=== PATIENT | male | born 1985 | race Caucasian/White ===

== ENCOUNTER 2017-02-28 22:07 | Emergency (ER) | payer SELFPAY ==
[~2017-02-28] VITALS: Ht 177.8 cm; Wt 77.1 kg
[2017-02-28 22:35] LABS: BILIRUBIN,URINE NEGATIVE (NEGATIVE); KETONES,URINE NEGATIVE (NEGATIVE); LEUKOCYTE ESTERASE ,URINE 3+ (NEGATIVE); NITRITE,URINE NEGATIVE (NEGATIVE); PH,URINE 6 (5-9); PROTEIN,URINE 2+ (NEGATIVE); UROBILINOGEN,URINE NORMAL (NORMAL)
[2017-02-28 22:47] LABS: WBC,URINE TNTC /HPF
[2017-02-28] MEDS ORDERED: AZITHROMYCIN 250 MG TAB (ZITHROMAX) PO STA (23:28)
[2017-02-28] MEDS ORDERED: cefTRIAXone 250 MG (ROCEPHIN) VIAL IM ONE (23:30)
[2017-02-28] MEDS ORDERED: LIDOCAINE 1% INJ 20 ML (XYLOCAINE) VIAL INJ ONE (23:30)
--- NOTE | 2017-02-28 23:35 | ED GU-Male ---
General Chief Complaint: -Male Stated Complaint: BLOOD IN URINE Nursing Triage Note: PT TO ED 3 W/ C/O TESTICULAR PAIN ET HEMATURIA ONSET YESTERDAY. DENIES INJURY Source: patient Exam Limitations: no limitations History of Present Illness Time seen by provider: 23:20 Initial Comments Here with report of burning with urination that's been going on actually for a couple weeks. Got better and then worse yesterday. Was checked for sexual transmitted diseases about a month ago and was clear. He has the same partner but apparently partner did have the disease. He has not been treated for Chlamydia as of yet. He is concerned about that. Timing/Duration: getting worse Severity/Quality: mild, moderate Location: suprapubic, urethral Radiation: none Activities at Onset: none Sexual [place] History: less than 2 months ago, single partner Associated Symptoms: dysuria, No fever/chills, No nausea/vomiting, urinary frequency Allergies and Home Medications Allergies Coded Allergies: No Known Drug Allergies (Unverified , 02/28/17) Constitutional: see HPI, No chills, No fever Respiratory: no symptoms reported Cardiovascular: no symptoms reported Gastrointestinal: no symptoms reported Genitourinary: see HPI, burning, dysuria, pain Musculoskeletal: no symptoms reported Past [id number]-[id number] Hx Patient Social History Alcohol Use: Denies Use Recreational Drug Use: No Smoking Status: Current Everyday Smoker Type Used: Cigarettes 2nd Hand Smoke Exposure: Yes Recent Foreign Travel: No Contact w/Someone Who Travel: No Recent Infectious Disease Expo: No Recent Hopitalizations: No Physical Abuse: No Sexual Abuse: No Mistreated: No Fear: No Surgeries History of Surgeries: No Respiratory History of Respiratory Disorde: No Cardiovascular History of Cardiac Disorders: No Neurological History of Neurological Disord: No Genitourinary History of Genitourinary Disor: No Gastrointestinal History of Gastrointestinal Di: No Musculoskeletal History of Musculoskeletal Dis: No Endocrine History of Endocrine Disorders: No HEENT History of HEENT Disorders: No Cancer History of Cancer: No Psychosocial History of Psychiatric Problem: No Suicide Risk Score: 0 Integumentary History of Skin or Integumenta: No Reviewed Nursing Assessment Reviewed/Agree w Nursing PMH: Yes Family Medical History Significant Family History: No Pertinent Family Hx Physical Exam Vital Signs Vital Sign - Last 12Hours 02/28/17 22:14 Temp 98.6 Pulse 103 Resp 16 B/P (MAP) 149/83 (105) Pulse Ox 99 O2 Delivery Room Air Capillary Refill : Less Than 3 Seconds General Appearance: WD/WN, no apparent distress Cardiovascular: regular rate, rhythm, no murmur Respiratory: lungs clear, normal breath sounds Gastrointestinal: non tender, soft Back: normal inspection, no CVA tenderness, no vertebral tenderness Neurologic/Psychiatric: alert, oriented x 3 Skin: normal color, warm/dry Progress/Results/Core Measures Suspected Sepsis Recent Fever Within 48 Hours: No Infection Criteria Present: None New/Unexplained Altered Menta: No Sepsis Screen: No Definite Risk Sepsis Diagnosis: SIRS Temperature:98.6 Pulse: 103 Respiratory Rate: 16 Blood Pressure 149 /83 Mean: 105 Results/Orders Lab Results Laboratory Tests Test 02/28/17 22:19 Range/Units Urine Color YELLOW Urine Clarity CLEAR Urine pH 6 5-9 Urine Specific [place] 1.025 H 1.016-1.022 Urine Protein 2+ H NEGATIVE Urine Glucose (UA) NEGATIVE NEGATIVE Urine Ketones NEGATIVE NEGATIVE Urine Nitrite NEGATIVE NEGATIVE Urine Bilirubin NEGATIVE NEGATIVE Urine Urobilinogen NORMAL NORMAL MG/DL Urine Leukocyte Esterase 3+ H NEGATIVE Urine RBC (Auto) 1+ H NEGATIVE Urine RBC 0-2 /HPF Urine WBC TNTC H /HPF Urine Crystals NONE /LPF Urine Bacteria FEW H /HPF Urine Casts NONE /LPF Urine Mucus SMALL H /LPF Urine Culture Indicated YES My Orders Orders - JASS HANNAH MD Ua Culture If Indicated (02/28/17 22:31) Urine Culture (02/28/17 22:19) Ceftriaxone Injection (Rocephin Injectio (02/28/17 23:30) Azithromycin Tablet (Zithromax Tablet) (02/28/17 23:28) Lidocaine 1% Injection (Xylocaine 1% Inj (02/28/17 23:30) Neis Caio Dna Urine Test (02/28/17 23:28) Chlamydia Dna (02/28/17 23:28) Vital Signs/I&O Vital Sign - Last 12Hours 02/28/17 22:14 Temp 98.6 Pulse 103 Resp 16 B/P (MAP) 149/83 (105) Pulse Ox 99 O2 Delivery Room Air Capillary Refill : Less Than 3 Seconds Blood Pressure Mean: 105 Progress Note : Progress Note Seen and evaluated. Rocephin 250 mg IM and Zithromax 1 g by mouth for subjective treatment of STI. UA is positive for urinary tract infection. GC and chlamydia urine testing ordered. Discharged home with return precautions. Patient verbalize understanding instructions and agreement with plan. Departure Impression Impression: Primary Impression: Urinary tract infection Qualified Codes: N30.00 - Acute cystitis without hematuria Disposition: HOME, SELF-CARE Condition: Stable Departure-Patient Inst. Referrals: NO,LOCAL PHYSICIAN (PCP/Family) Primary Care Physician Patient Instructions: Urinary Tract Infection, Adult (DC), Sexually- Transmitted Diseases (DC) Add. Discharge Instructions: All discharge instructions reviewed with patient and/or family. Voiced understanding. Take medications as directed. Follow up with your Dr. in a few days for recheck. If the urine testing is positive for sexual transmitted diseases, you will be called. Return for worse pain, fever, vomiting, weakness, breathing problems or other concerns as needed. Drink plenty of fluids. Scripts Cephalexin (Cephalexin) 500 Mg Tablet 500 MG PO BID, #14 TAB 0 Refills Prov: JASS HANNAH MD 02/28/17 JASS HANNAH MD Feb 28, 2017 23:35
[2017-02-28] MEDS ORDERED: CEPH500T PO (23:41)
[2017-02-28] MEDS ORDERED: WATER (STERILE) FOR INJECTION 0 ML ONE (23:49)
[2017-02-28] MEDS ORDERED: LIDOCAINE 1% INJ 50 ML (XYLOCAINE) VIAL ONE (23:50)
[2017-02-28 23:57] VITALS: BP 125/92
[2017-03-03 09:52] LABS: CHLAMYDIA DNA URINE Detected (Not Detecte)
[2017-03-03 09:53] LABS: NEISSERIA GONORRHEA DNA URINE Detected (Not Detecte)
== END 2017-03-01 00:12 | disposition home or self-care (01) ==
LOC: ER 22:11
DX: N39.0 Urinary tract infection, site not specified (principal); F17.210 Nicotine dependence, cigarettes, uncomplicated
CPT/HCPCS: 36415; 81000; 87088; 87491; 87591; 99284